=== PATIENT | male | born 1980 | race Caucasian/White ===

== ENCOUNTER → 2016-08-26 | Outpatient (CLI) | payer OTHER ==
--- NOTE | 2016-08-26 09:30 | DI ---
RIGHT ELBOW, 08/26/2016 8:57 AM: Clinical History: Injury. Previous Exam: None at this facility. 3 views are submitted. There is no fracture or dislocation noted. A very small posterior fat pad is p resent indicating there is a small amount of joint effusion. There is a bony density along the sasha medial margin of the neck of the radius. This may be secondary to previous trauma. Readin. There is no acute fracture or dislocation noted, but there is a very small joint effusion. There is a bony density along the anteromedial margin of the neck of the radius consistent with previous tr auma. 2. Followup films in 7-10 days are recommended to be certain there is no occult fracture present.
== END ==
LOC: MOB RAD 09:02
PROVIDERS: ATTEND Physician Assistant Medical
DX: S59.901A Unspecified injury of right elbow, initial encounter (principal); M24.521 Contracture, right elbow; M25.421 Effusion, right elbow; W00.0XXA Fall on same level due to ice and snow, initial encounter; F17.210 Nicotine dependence, cigarettes, uncomplicated
CPT/HCPCS: 73080

== ENCOUNTER → 2016-10-01 | Outpatient (CLI) | payer OTHER ==
--- NOTE | 2016-10-01 22:56 | DI ---
XR INJECTION PROCEDURE ELBOW,10/01/2016 1:57 PM: Clinical History: Right elbow contracture. Previous Exam: None at this facility. Procedure: Risks, benefits and alternatives were explained the patient form the consent obtained. The patient was placed in the seated position with the right elbow over the fluoroscopy table. The lateral left elbow was prepped and draped in usual sterile fashion and 1% lidocaine used for loca l anesthesia. Under fluoroscopic guidance, a 25-gauge needle was advanced into the right elbow joint and approximat brenda 5 cc of a diluted Omnipaque solution. The patient tolerated the procedure well and was sent to the CT scanner for further evaluation. Findings: A single AP view and lateral views of the elbow are obtained demonstrating contrast within the elbow joint. Impression: Successful right elbow arthrogram. CT pending.
--- NOTE | 2016-10-01 23:26 | DI ---
CT UPPER EXTREMITY W/CONTRAST,10/01/2016 1:55 PM: Clinical History: Right elbow contracture. Previous Exam: X-ray of the elbow performed August 26, 2016 Findings: Multiple helically acquired CT images are obtained through the right elbow following the intra-articu lar administration of Omnipaque 300. There are significant osteophytes noted within the olecranon fossa of the distal humerus. This prevents the posterior margin of the ulnar notch from entering into the olecranon fossa on compl ete extension. There are also osteophytes noted involving the radial head worst along the ulnar surface. There are some other osteophytes noted along the medial soft tissues of the olecranon. There are no acute fractures identified. The surrounding soft tissues are unremarkable. Impression: 1. Osteophyte formation within the olecranon fossa. This could be occluding the complete extension of the elbow. 2. Significant osteophyte formation of the radial head predominantly along the ulnar surface.
== END ==
LOC: RAD 13:51
PROVIDERS: ATTEND Orthopaedic Surgery
DX: M24.521 Contracture, right elbow (principal)
CPT/HCPCS: 24220; 73201

== ENCOUNTER 2016-10-12 15:00 | Day surgery (SDC) | payer OTHER ==
[2016-10-12] MEDS ORDERED: Sodium Chloride 0.9% 1,000 ML PRIMARY IV ONE (15:08)
[2016-10-12] MEDS ORDERED: MORPHINE SULFATE 2 MG/1 ML IVP ONE (15:08)
[2016-10-12] MEDS ORDERED: NORMAL SALINE 10 ML SYRINGE FLUSH IVP PRN ×2 (15:08→20:00)
[2016-10-12] MEDS ORDERED: ceFAZolin Inj 2gm (Premix) 2 GM in Dextrose 1 BAG IV ONE (15:08)
[2016-10-12] MEDS ORDERED: ONDANSETRON 4 MG/2 ML VIAL IVP ONE (15:09)
[2016-10-12] MEDS: HYDROmorphone 2 MG/1 ML IVP ONE ×2 (16:05→17:14)
--- NOTE | 2016-10-12 17:52 | DI ---
LEFT INDEX FINGER, 10/12/2016 3:08 PM: Clinical History: Injury. Previous Exam: None at this facility. 3 views are submitted. There is an open transverse fracture through the midshaft of the middle phalan x of the index finger. The distal fracture fragment is angulated medially by at least 45 degrees and angulated volarly by 50 degrees. The distal fracture fragment is displaced laterally and dorsally by one bone shaft diameter. Reading: Open fracture of the middle phalanx of the index finger as above.
[2016-10-12] MEDS ORDERED: Lactated Ringers 1,000 ML PRIMARY IV ONE (18:06)
[2016-10-12] MEDS ORDERED: Sodium Chloride 0.9% vial 10 ML ONE (18:10)
[2016-10-12] MEDS ORDERED: BACITRACIN 50,000 UNIT VIAL IRRIG ONE (18:10)
[2016-10-12] MEDS ORDERED: Sodium Chloride 0.9% 1,000 ML ONE (18:11)
[2016-10-12] MEDS ORDERED: MIDAZOLAM 5 MG/1 ML ONE (18:12)
[2016-10-12] MEDS ORDERED: MEPIVACAINE HCL/PF 20 MG/1 ML IV ONE (18:12)
[2016-10-12] MEDS ORDERED: LIDOCAINE 2%/ EPI 1:200,000 - 20 ML VIAL ONE (18:12)
[2016-10-12] MEDS ORDERED: fentaNYL Inj 100 MCG/2 ML VIAL ONE (18:12)
[2016-10-12] MEDS ORDERED: LIDOCAINE W/ SODIUM BICARB 0.5 ML SYR ONE (18:19)
[2016-10-12] MEDS ORDERED: Povidone-Iodine Ointment 28.35 gm ointment TOPICAL ONE (19:05)
--- NOTE | 2016-10-12 19:06 | CRNA.PROCE ---
Nerve Block Documentation - - Safety Measures: Time Out Taken, Site Verified - - Type of Nerve Block Used: Left Infraclavicular Block Position for Nerve Block: Supine Moniters Used During Block: EKG, SPO2, NIBP Oxygen Sumpplented: Yes Sedation Used - Enter Amount in Comment Field: Midazolam (mg): Yes (3mg iv), Fentanyl (mcg): Yes (100 mcg iv) Skin Prep Used: ChloroPrep Technique: Nerve Stimulator Nerve Block Needle Used: 80 mm ProBlk II Stimulation Hz: 1.0 Stimulation Staring mA: 1.2 Stimulation Ending mA: 0.5 Local Anesthetic - Enter Amt in Comment Field: 2 % Xylocaine with Epinephrine 1: 200,000 (mL): Yes (20ml), 2 % Mepivacaine (mL): Yes (20ml)
[2016-10-12] MEDS ORDERED: Prochlorperazine Tab 10 MG TAB PO PRN (20:00)
[2016-10-12] MEDS ORDERED: ACETAMINOPHEN 325 MG TABLET PO PRN (20:00)
[2016-10-12] MEDS ORDERED: diphenhydrAMINE 25 MG CAPSULE PO PRN (20:00)
[2016-10-12] MEDS ORDERED: BISACODYL 10 MG SUPPOSITORY RECTAL PRN (20:00)
[2016-10-12] MEDS ORDERED: HYDROcodone-APAP 7.5 MG-325 MG TABLET PO PRN (20:00)
[2016-10-12] MEDS ORDERED: Ondansetron ODT Tab 8 MG TAB PO PRN (20:00)
[2016-10-12] MEDS ORDERED: Lactated Ringers 1,000 ML PRIMARY IV SCH (20:00)
[2016-10-12] MEDS ORDERED: CALCIUM CARBONATE 500 MG (TUMS) CHEWABLE TABLET PO PRN (20:00)
[2016-10-12] MEDS ORDERED: ONDANSETRON 4 MG/2 ML VIAL IVP PRN (20:00)
[2016-10-12] MEDS ORDERED: MAG HYDROX/AL HYDROX/SIMETH 30 ML SUSP PO PRN (20:00)
[2016-10-12] MEDS ORDERED: IBUPROFEN 400 MG TABLET PO PRN (20:00)
[2016-10-12] MEDS ORDERED: BISACODYL 5 MG TABLET PO PRN (20:00)
[2016-10-12] MEDS ORDERED: HYDROcodone-APAP 7.5 MG-325 MG TABLET PO ONE (20:23)
[2016-10-12 21:00] VITALS: RESP 16
[2016-10-12] MEDS ORDERED: ASPIRIN 325 MG TABLET PO SCH (21:00)
[2016-10-12 21:01] VITALS: TEMP 97.4
--- NOTE | 2016-10-13 03:30 | PDOC ---
Hand / Wrist Injury HPI - General Chief Complaint: Upper Extremity Problem/Injury Stated Complaint: FINGER AMPUTATION Date Seen by Provider: 10/13/16 Time Seen by Provider: 15:10 Source: POSITIVE: Patient Exam Limitations: POSITIVE: No limitations Nurse's Notes Reviewed & Considered: Yes - History of Present Illness Initial Comments: The patient is a 36-year-old male who presents to the emergency department with an injury to his left index finger. He states that he was at work when he got his left index finger caught in some hydraulic equipment. The tip of the left index finger is nearly completely amputated. He denies any other associated injuries or complaints. His last tetanus shot was 3 years ago. He is generally healthy otherwise. Have you received a tetanus shot in the past 10 years?: Yes - Patient Home Medications Home Medications: Home Medications Ibuprofen 800 mg PO TID #30 tab 08/26/16 Aspirin 325 mg PO BID tab 10/12/16 HYDROcodone/APAP 7.5/325 Tab [[place] 7.5/325 Tab] 1 - 2 tab PO Q4H PRN #50 tab 10/12/16 - Patient Allergies Allergies/Adverse Reactions: Allergies Allergy/AdvReac Type Severity Reaction Status Date / Time No Known Drug Allergies Allergy Unknown NOT Verified 10/12/16 18:28 APPLICABLE Past Medical History - heen HEENT History: Denies History Cardiovascular History: Denies History Respiratory History: Denies History Gastrointestinal History: Denies History Genitourinary History: Denies History Endocrine History: Denies History Musculoskeletal History: Back Pain Prosthesis or Implant: No Additional Musculoskeletal History: 2 KNEE SCOPES 15 YR AGO Neurological History: Denies History Blood Disorders: Denies History Psychiatric History: Denies History History of Sexually Transmitted Diseases: No Cancer History: Denies History In Past Year Been Physically Harmed or Verbally Threatened: No History of MDRO: Yes Type of MDRO: MRSA Other Type of MDRO: FROM INSECT BITE 2013 History of Other Communicable Diseases: No Tobacco Use: Current Every Day Smoker Alcohol Use: Occasionally Substance Use Type: None Previous Surgical History: Yes Type / Date of Surgery: L KNEEE X 2 Anesthesia Reactions: No Malignant Hyperthermia: No Significant Family History: No pertinent family hx Past Medical History Reviewed: Reviewed - No Changes ROS - Limitations ROS Limitations: No Limitations (Review of systems otherwise noncontributory, he did eat lunch just prior to this incident) Hand / Wrist Injury Exam - General Appearance General Appearance: POSITIVE: Alert, Cooperative, No Acute Distress - Extremities Upper Extremity: POSITIVE: Other (examination of the left index finger reveals a near complete amputation of the finger just proximal to the DIP joint, the tip of the finger is completely devascularized and displaced) Hand / Wrist Injury Progress - Results Reviewed by me Xrays/CTs/US Reviewed by me: Yes Discussed with Radiologist: Yes Radiology Findings: X-ray of the left index finger reveals a fracture through the midshaft of the middle phalanx with significant displacement per radiologist. - Patient's Progress MDM / ED Course: Shortly after arrival an IV was established and the patient received Ancef 2 g IV as well as morphine and Zofran initially for pain. He did not really have any significant relief in pain with morphine. He subsequently received Dilaudid 1 mg IV with some pain relief. Orthopedic consultation from Dr. Caro was obtained shortly after arrival. X-rays were obtained. Dr. Caro evaluated the patient in the emergency room and made preparations to take him to the OR. - Consult Counseled: POSITIVE: Patient, RE: Radiology Results, RE: DX, RE: Need for F/U Patient Care Time - Estimated PCT Patient Care Time (In Minutes): 20 Vital Signs - Recent Vital Signs Vital Signs: Vital Signs (Last 8 hours) Temp Pulse Resp BP 10/12/16 20:21 97.4 F 66 16 118/89 10/12/16 20:06 61 16 130/90 10/12/16 19:50 97.1 F 80 12 126/84 10/12/16 19:45 97.4 F - VS Reviewed Vital Signs Reviewed: Yes Discharge Clinical Impression: Near amputation of finger of left hand Discharge Disposition: Transferred to OR Condition: Serious
== END 2016-10-12 20:49 | disposition home or self-care (01) ==
LOC: ER 15:00 → SDSC 17:36
PROVIDERS: ATTEND Orthopaedic Surgery
DX: S68.121A Partial traumatic metacarpophalangeal amputation of left index finger, initial encounter (principal); W31.89XA Contact with other specified machinery, initial encounter
CPT/HCPCS: 26951; 73140; 96365; 96375; 99282; 99283; A4216; J0690; J2704; J3010; J0670; J1170; J2250; J2270; J2405; J7030; J7120

== ENCOUNTER → 2016-10-23 | Outpatient (CLI) | payer OTHER ==
--- NOTE | 2016-10-23 10:56 | DI ---
LEFT HAND, 10/23/2016 10:45 AM: Clinical History: Amputation of the index finger. Previous Exam: Comparison is made with the left finger exam from 10/12/2016. 3 views are submitted. The index finger has been amputated at the level of the midshaft of the middle phalanx. The remainder of the examination is normal. Reading: Amputation of the index finger at the level of the midshaft of the middle phalanx.
== END ==
LOC: ORTHO 10:53
PROVIDERS: ATTEND Orthopaedic Surgery
DX: S68.111A Complete traumatic metacarpophalangeal amputation of left index finger, initial encounter (principal); Z98.890 Other specified postprocedural states
CPT/HCPCS: 73140